=== PATIENT | female | born 1960 | race Caucasian/White ===

== ENCOUNTER 2020-04-03 08:40 | Inpatient (IN) | payer MEDICAID, OTHER ==
[~2020-04-03] VITALS: Ht 162.6 cm; Wt 52.3 kg
[2020-04-03] MEDS ORDERED: SODIUM CHLORIDE 0.9% 1,000 ML IV ONE (09:14)
[2020-04-03] MEDS ORDERED: SODIUM CHLORIDE 0.9% 1,000 ML IVB ONE (09:14)
[2020-04-03] MEDS ORDERED: METOCLOPRAMIDE HCL 5MG/ml INJ 2ml VIAL IV ONE (09:15)
[2020-04-03] MEDS ORDERED: MORPHINE SULFATE 4 MG/ML SYR/VIAL IV ONE (09:15)
[2020-04-03] MEDS ORDERED: IOHEXOL 300 MG/ML 100ML BOTTLE IJ ONE (09:31)
[2020-04-03 11:26] LABS: Urine Bacteria NONE SEEN /hpf (None Seen); Urine Blood 1+ /uL (Negative); Urine Mucus FEW (None Seen); Urine Specific Gravity 1.026 (1.001-1.035); Urine WBC 3 /hpf (0 - 5)
[2020-04-03 11:32] LABS: Basophils # (auto) 0 10 ^3/uL (0-0.2); Basophils % (auto) 0.4 % (0.0-2.0); Eosinophils # (auto) 0.1 10 ^3/uL (0-0.8); Eosinophils % (auto) 0.7 % (0.0-7.0); Hemoglobin 12.6 g/dL (12.2-16.2); Lymphocytes # (auto) 1.7 10 ^3/uL (0.4-5.4); Lymphocytes % (auto) 14.1 % (10.0-50.0); Mean Corpuscular Hemoglobin 29.7 pg (28.0-32.0); Mean Corpuscular Hgb Conc. 33.1 g/dL (32.0-36.0); Mean Corpuscular Volume 89.8 fL (80.0-100.0); Monocytes # (auto) 0.9 10 ^3/uL (0-1.3); Monocytes % (auto) 7.7 % (0.0-12.0); Neutrophils # (auto) 9.1 10 ^3/uL (1.6-8.6); Neutrophils % (auto) 77.1 % (37.0-80.0); Nucleated Red Blood Cells % 0.1 %; Platelet Count (auto) 262 10^3/uL (140-450); Red Blood Cells 4.23 10^6/uL (4.0-5.20); Red Cell Distribution Width 13.2 % (11.8-14.3); White Blood Cell 11.8 10^3/uL (4.4-10.8)
[2020-04-03 11:45] LABS: Magnesium 2.3 mg/dL (1.6-2.6); Potassium 3.4 mmol/L (3.5-5.1)
[2020-04-03 11:52] LABS: Albumin 3.2 g/dL (3.4-5.0); BUN/Creatinine Ratio 19.7; Bilirubin, Total 0.5 mg/dL (0.2-1.0); Calcium 8.5 mg/dL (8.5-10.1); Total Protein 7.1 g/dL (6.4-8.2)
[2020-04-03] MEDS ORDERED: cefTRIAXone 1GM/50ML D5W 50 ML IV ONE (13:15)
[2020-04-03] MEDS ORDERED: metroNIDAZOLE 500MG/100ML 100 ML IV ONE (13:15)
[2020-04-03] MEDS ORDERED: HYDROcodone-ACET 5/325MG TAB PO PRN (13:45)
[2020-04-03] MEDS ORDERED: DOCUSATE SOD 100 MG CAP PO PRN (13:45)
[2020-04-03] MEDS ORDERED: MORPHINE SULF INJ 2 MG/ML SYRINGE 1ML IV PRN (13:45)
[2020-04-03] MEDS ORDERED: NITROGLYCERIN 0.4 MG SL TAB SL PRN (13:45)
[2020-04-03] MEDS ORDERED: ACETAMINOPHEN 325 MG TAB PO PRN (13:45)
[2020-04-03] MEDS ORDERED: ceFAZolin 1GM/50ML 50 ML IV ONE (13:45)
[2020-04-03] MEDS ORDERED: CLINDAMYCIN 600MG IV 50 ML IV ONE (13:45)
[2020-04-03] MEDS ORDERED: LORazepam 0.5 MG TAB PO PRN (13:45)
[2020-04-03] MEDS ORDERED: LACTATED RINGER'S 1,000 ML IV ONE (13:45)
[2020-04-03] MEDS ORDERED: POTASSIUM CHL 20MEQ/100ML 100 ML IV ONE (13:45)
[2020-04-03] MEDS ORDERED: ALUM & MAG HYDROX-SIMETH LIQ(MAALOX) 30 ML PO PRN (13:45)
[2020-04-03] MEDS ORDERED: CLINDAMYCIN 600MG IV 50 ML IV SCH (14:00)
[2020-04-03] MEDS ORDERED: ceFAZolin 1GM/50ML 50 ML IV SCH (14:00)
[2020-04-03] MEDS ORDERED: PANTOPRAZOLE 40 MG/10 ML VIAL INJ IV ONE (14:15)
[2020-04-03] MEDS ORDERED: cloNIDine HCL 0.1 MG TAB PO PRN (15:00)
[2020-04-03] MEDS ORDERED: ASCO500T11 PO (15:11)
[2020-04-03] MEDS ORDERED: CHOL20007 PO (15:11)
[2020-04-03] MEDS ORDERED: ATOR10TA52 PO (15:11)
[2020-04-03] MEDS ORDERED: OMEP-263 PO (15:11)
[2020-04-03 15:14] LABS: Cholesterol 187 mg/dL (< 200); HDL Cholesterol 42 mg/dL (40-59); LDL Cholesterol 132 mg/dL (< 100); Triglycerides 103 mg/dL (< 150)
[2020-04-03] MEDS ORDERED: BENZOCAINE (DENTAL) 20 % SPRAY 60ML MT ONE ×2 (15:32→15:45)
[2020-04-03] MEDS: MORPHINE SULF INJ 2 MG/ML SYRINGE 1ML IV PRN ×2 (15:58→21:02)
[2020-04-03] MEDS: ONDANSETRON HCL 4 MG/2 ML VIAL IV PRN ×2 (15:58→21:03)
[2020-04-03] MEDS: SOD CHL 0.9%/ KCL 40MEQ 1,000 ML IV SCH ×2 (18:15→22:33)
[2020-04-03] MEDS: cefTRIAXone 1GM/50ML D5W 50 ML IV SCH (21:02)
[2020-04-03] MEDS: ATORVASTATIN 20 MG TAB PO SCH (22:00)
[2020-04-03] MEDS: metroNIDAZOLE 500MG/100ML 100 ML IV SCH (22:43)
--- NOTE | 2020-04-03 23:00 | NUR ---
received pt from the ER.NGT in [facility].
[2020-04-03 23:30] VITALS: BP 143/94
[2020-04-04] MEDS: MORPHINE SULF INJ 2 MG/ML SYRINGE 1ML IV PRN ×3 (02:04→20:43)
[2020-04-04] MEDS: metroNIDAZOLE 500MG/100ML 100 ML IV SCH ×3 (06:05→21:45)
[2020-04-04] MEDS: SOD CHL 0.9%/ KCL 40MEQ 1,000 ML IV SCH ×2 (06:09→14:44)
[2020-04-04 06:21] VITALS: BP 141/91
--- NOTE | 2020-04-04 07:30 | NUR ---
Opening Shift Note Assumed patient care from NOC RN. Patient currently resting in bed with eyes closed. No signs of distress at this time, respirations even and unlabored. NGT on low intermittent suction, drainage noted. Safety precautions in place, call light within reach. Will continue to monitor.
[2020-04-04 08:46] LABS: Basophils # (auto) 0.1 10 ^3/uL (0-0.2); Basophils % (auto) 0.4 % (0.0-2.0); Eosinophils # (auto) 0.1 10 ^3/uL (0-0.8); Eosinophils % (auto) 0.5 % (0.0-7.0); Hematocrit 37.6 % (36.0-46.0); Hemoglobin 12.5 g/dL (12.2-16.2); Lymphocytes # (auto) 1.1 10 ^3/uL (0.4-5.4); Lymphocytes % (auto) 8.6 % (10.0-50.0); Mean Corpuscular Hgb Conc. 33.3 g/dL (32.0-36.0); Mean Corpuscular Volume 90.1 fL (80.0-100.0); Monocytes # (auto) 0.9 10 ^3/uL (0-1.3); Monocytes % (auto) 6.9 % (0.0-12.0); Neutrophils # (auto) 11.1 10 ^3/uL (1.6-8.6); Neutrophils % (auto) 83.6 % (37.0-80.0); Nucleated Red Blood Cells % 0.1 %; Platelet Count (auto) 275 10^3/uL (140-450); Red Blood Cells 4.18 10^6/uL (4.0-5.20); Red Cell Distribution Width 13.3 % (11.8-14.3); White Blood Cell 13.3 10^3/uL (4.4-10.8)
[2020-04-04 09:00] VITALS: BP 151/81
[2020-04-04 09:05] LABS: INR 0.97 (0.9-1.15); Partial Thromboplastin Time 24.2 sec (23.0-31.2)
[2020-04-04 09:08] LABS: Albumin 2.9 g/dL (3.4-5.0); BUN/Creatinine Ratio 10.5; Calcium 8.5 mg/dL (8.5-10.1); Potassium 3.6 mmol/L (3.5-5.1)
[2020-04-04 09:10] LABS: Bilirubin, Total 0.5 mg/dL (0.2-1.0); Phosphorus 2.6 mg/dL (2.5-4.90)
[2020-04-04] MEDS: cefTRIAXone 1GM/50ML D5W 50 ML IV SCH ×2 (10:16→20:43)
[2020-04-04] MEDS: PANTOPRAZOLE 40 MG/10 ML VIAL INJ IV SCH (10:17)
--- NOTE | 2020-04-04 10:23 | NUR ---
at [facility] Dr. Sanon at [facility], discussed plan of care, no new orders at this time. Addendum: 04/04/20 at 1328 by RADHA LUCAS RN RN New orders received: start TPN per pharmacy once midline is placed.
[2020-04-04] MEDS: ONDANSETRON HCL 4 MG/2 ML VIAL IV PRN ×2 (10:34→20:43)
[2020-04-04 13:00] VITALS: BP 138/89
--- NOTE | 2020-04-04 13:27 | NUR ---
Called for Midline Called radiology for midline RN per Dr. Sanon request, no answer at this time, will attempt later.
--- NOTE | 2020-04-04 15:04 | NUR ---
at [facility] Warner at station discussing plan of care with patient. Addendum: 04/04/20 at 1854 by RADHA LUCAS RN RN and
--- NOTE | 2020-04-04 16:00 | NUR ---
PICC Line RN Received call from PICC line RN. Patient to have PICC line placed tomorrow.
[2020-04-04 16:51] VITALS: BP 135/77
--- NOTE | 2020-04-04 19:30 | NUR ---
Opening Shift Note Assumed care of patient, awake and alert. A&Ox4. Patient sitting up in bed. No S/S of distress/SOB or pain. NGT tube to low intermittent suction. Safety measures maintained by keeping the bed locked in lowest position, 2 side rails up, personal items and call light within reach. Instructed on POC and to call for assist PRN, will continue to monitor for changes Q1hr and PRN.
[2020-04-04] MEDS: ATORVASTATIN 20 MG TAB PO SCH (21:45)
[2020-04-04 22:16] VITALS: BP 117/76
[2020-04-05] MEDS: SOD CHL 0.9%/ KCL 40MEQ 1,000 ML IV SCH ×3 (00:09→16:13)
[2020-04-05] MEDS: metroNIDAZOLE 500MG/100ML 100 ML IV SCH (05:37)
[2020-04-05 05:52] VITALS: BP 147/88
--- NOTE | 2020-04-05 07:30 | NUR ---
Opening Shift Note Assumed care of patient, resting comfortably. No S/S of distress/SOB or pain on room air, NGT in place. Instructed on POC and to call for assist PRN, will continue to monitor for changes Q1hr and PRN. Bed in low and locked position, rails up x2, no-slip socks on.
[2020-04-05 09:00] VITALS: BP 137/85
[2020-04-05] MEDS: PANTOPRAZOLE 40 MG/10 ML VIAL INJ IV SCH (10:14)
[2020-04-05] MEDS: cefTRIAXone 1GM/50ML D5W 50 ML IV SCH (10:14)
--- NOTE | 2020-04-05 11:05 | NUR ---
DR CHEEK AT BEDSIDE AWAITING SURGICAL CONSULT AND PICC LINE INSERTION TODAY.
--- NOTE | 2020-04-05 11:09 | NUR ---
DR OVERTON AT BEDSIDE-CLAMPED NGT CONTINUE TO REASSESS PATIENT FOR NAUSEA AND ABILITY TO TOLERATE CLAAPPED NG. Addendum: 04/05/20 at 1110 by IQRA GUERRA RN RN CLAMPED NG TUBE
[2020-04-05 13:00] VITALS: BP 149/81
--- NOTE | 2020-04-05 14:08 | NUR ---
Assessment Patient is a 59-year-old female who is alert and oriented. Prior to admission patient lived home with her significant other Adebayo and functioned independently. Patient informed me she can care for her own ADLs. Patient informed me she does not have any medical equipment now. Per patient she will return home to her prior living arrangement post discharge and Adebayo will transport her home. Advised patient there is a social service consult for home health TPN and IV abx 1gm daily for 3 weeks. Informed patient clinical information will be faxed to [facility] and JALYN Santos will be working on the IV abx. Per patient Adebayo can assist with the IV abx when the home health agency is unable too. Patient informed me she does not have a primary doctor and would like to be assign to one. Informed patient I will refer her to Keren Reina who can assist with assign a primary doctor. Informed patient she has a right to participate in all discharge planning. Patient verbalized understanding and agreed to discharge plan home. Faxed clinical information to [facility] and [facility]. Toni Rod with [facility] [phone] patient has been accepted and they will see patient within 24hrs upon d/c day. Addendum: 04/05/20 at 1411 by LINCOLN ROJAS Amended: Links added.
--- NOTE | 2020-04-05 14:12 | NUR ---
Faxed Home IVAB & TPN order to [facility], called [phone] and spoke with Karina who confirmed packet has been received
--- NOTE | 2020-04-05 15:04 | NUR ---
PICC line placement Patient educated on need for PICC line placement. All risks and benefits explained and all questions and concerns addressed prior to procedure. Noted past medical history and allergies with no contraindications. INR and Plt counts within acceptable range. 5 fr PICC line inserted via right brachial vein using [employer] US and Tip Location System. Sterile technique with maximum barrier precautions utilized. Blood return obtained from each of the 2 lumens and each flushed easily with NS using proper technique. PICC secured with Stat-lock; biodisc and occlusive dressing applied. Stat portable chest x-ray obtained for PICC tip placement. *Baseline Arm Circumference 26 cm. Internal length 35 cm. External length 1 cm. Total PICC length is 36 cm. PICC lot #[id number]
--- NOTE | 2020-04-05 15:05 | NUR ---
Obtain authorization from [facility] for [facility] [id number].
[2020-04-05] MEDS ORDERED: LIDOCAINE 1% (LOCAL ANESTH.) PF 5ml SDV ID ONE (15:15)
[2020-04-05] MEDS: BENZOCAINE (DENTAL) 20 % SPRAY 60ML MT PRN (15:16)
--- NOTE | 2020-04-05 15:17 | NUR ---
Rec'd call back from Lily at [facility], advising they will need the following before they can start services on patient: MAR - once ertapenem has been given PICC/Radiology Insertion report TPN formula once pt has been started on and is stable Labs from the date of d/c Order to be modified to say: Pharmacy to Manage Flush Orders (form) Orders for weekly Labs: - CBC - TRANSCRIBING MACHINE MECHANIC - Mag - Phos - Triglycerides Order for [employer] Writer assessment
--- NOTE | 2020-04-05 15:41 | NUR ---
Nutrition Assessment Notes Please refer to link for full assessment notes. Est Energy needs: 4131-2139 kcals (25-30 kcal/kgBW) Est Protein needs: 42-53 gms/day (0.8-1.0 gm/kgBW) Will continue to monitor and reassess prn. Addendum: 04/05/20 at [address] Amended: Links added.
--- NOTE | 2020-04-05 15:47 | NUR ---
Okay to use PICC line Xray completed and reviewed. Okay to use PICC line. Cherelle MALDONADO notified.
[2020-04-05 17:03] VITALS: BP 155/90
[2020-04-05] MEDS ORDERED: TPN PER PHARMACY 0 ML IV SCH (17:15)
--- NOTE | 2020-04-05 19:20 | NUR ---
Opening note pt resting in semi fowlers with HOB at 30 degrees. respirations even and nonlabored on room air. pt denies pain or discomfort at this time, will continue to monitor. pt has x2 lumen PICC line placed at the right upper arm. POC discussed, pt verbalized understanding. pt is ambulatory to the bedside commode. bed rails up x2. pt has NG tube placement at the left nare at 65 cms, which is currently clamped. bed in low locked position, call light within reach.
[2020-04-05 19:36] LABS: Albumin 2.9 g/dL (3.4-5.0); Calcium 8.9 mg/dL (8.5-10.1); Potassium 4.7 mmol/L (3.5-5.1)
[2020-04-05 19:41] LABS: BUN/Creatinine Ratio 12.1; Bilirubin, Total 0.5 mg/dL (0.2-1.0); Total Protein 7.1 g/dL (6.4-8.2)
[2020-04-05] MEDS ORDERED: CLINIMIX PER PHARMACY IV NR (20:00)
[2020-04-05] MEDS ORDERED: SOD CHL 0.9%/ KCL 40MEQ 1,000 ML IV SCH (21:00)
--- NOTE | 2020-04-05 21:25 | NUR ---
IV discontinued left forearm 20g infiltrated and discontinued. entire catheter intact upon removal. pt tolerated removal well.
[2020-04-05] MEDS ORDERED: D5W 5% IV ONE (21:30)
[2020-04-05] MEDS ORDERED: [UNRECOGNIZED DRUG - OTHER] IV ONE (21:30)
[2020-04-05 22:00] VITALS: BP 151/84
[2020-04-05] MEDS: ATORVASTATIN 20 MG TAB PO SCH (22:52)
[2020-04-05] MEDS: SODIUM CHLOR 0.9% PF (SALINE LOCK) 10ML VIAL/SYR IV SCH (22:52)
[2020-04-05] MEDS: ACCU-CHEK COMFORT CURVE STRIP VI SCH (23:23)
[2020-04-05] MEDS: InsuLIN REG 1unit/0.01ml Soln (100units/ml) SC SCH (23:23)
[2020-04-06] MEDS ORDERED: DEXTROSE (50%) 50ML SYRG IV SCH
[2020-04-06] MEDS: BENZOCAINE (DENTAL) 20 % SPRAY 60ML MT PRN (03:23)
[2020-04-06 05:00] VITALS: BP 134/90
[2020-04-06] MEDS: ACCU-CHEK COMFORT CURVE STRIP VI SCH ×3 (05:59→17:35)
[2020-04-06] MEDS: InsuLIN REG 1unit/0.01ml Soln (100units/ml) SC SCH ×3 (05:59→17:35)
--- NOTE | 2020-04-06 06:10 | NUR ---
hospitalist spoke with Dr. Madison regarding resolved potassium deficiency. potassium level is no 4.7 new orders to discontinue NS 0.9 40 kcl meq. orders read back and verified. will carry out
[2020-04-06 06:32] LABS: Basophils # (auto) 0 10 ^3/uL (0-0.2); Basophils % (auto) 0.2 % (0.0-2.0); Eosinophils # (auto) 0.1 10 ^3/uL (0-0.8); Eosinophils % (auto) 1.4 % (0.0-7.0); Hematocrit 39.2 % (36.0-46.0); Hemoglobin 12.9 g/dL (12.2-16.2); Lymphocytes # (auto) 1.7 10 ^3/uL (0.4-5.4); Lymphocytes % (auto) 17.3 % (10.0-50.0); Mean Corpuscular Hemoglobin 29.3 pg (28.0-32.0); Mean Corpuscular Volume 88.8 fL (80.0-100.0); Monocytes # (auto) 0.9 10 ^3/uL (0-1.3); Monocytes % (auto) 9.4 % (0.0-12.0); Neutrophils # (auto) 6.9 10 ^3/uL (1.6-8.6); Neutrophils % (auto) 71.7 % (37.0-80.0); Nucleated Red Blood Cells % 0.1 %; Platelet Count (auto) 333 10^3/uL (140-450); Red Blood Cells 4.41 10^6/uL (4.0-5.20); Red Cell Distribution Width 13.2 % (11.8-14.3); White Blood Cell 9.6 10^3/uL (4.4-10.8)
[2020-04-06 06:49] LABS: Potassium 3.5 mmol/L (3.5-5.1)
[2020-04-06 06:57] LABS: Albumin 2.9 g/dL (3.4-5.0); BUN/Creatinine Ratio 17.3; Bilirubin, Total 0.4 mg/dL (0.2-1.0); Calcium 8.9 mg/dL (8.5-10.1); Pre Albumin 8.6 mg/dL (20.0-40.0); Total Protein 7.4 g/dL (6.4-8.2)
--- NOTE | 2020-04-06 07:19 | NUR ---
closing note pt resting in semi fowlers position with HOB at 30 degrees. pt does not report nausea or vomiting. no c/o pain or discomfort. endorsed care to day shift RN.
--- NOTE | 2020-04-06 07:40 | NUR ---
Opening Note Assumed pt care from NOC RN. Pt is a/ox4 with no s/s of distress or SOB. Pt is currently sitting upright in bed with no complaints at this time. NG tube noted to pt's Raulito nare, clamped. TNP is currently running at 42mL/hr. Discussed POC with pt; pending surgical consult and current NPO status. Safety measures maintained with call light within reach, bed in lowest position and side rails up. Will continue to monitor for changes.
[2020-04-06] MEDS: SODIUM CHLOR 0.9% PF (SALINE LOCK) 10ML VIAL/SYR IV SCH (08:34)
[2020-04-06] MEDS: PANTOPRAZOLE 40 MG/10 ML VIAL INJ IV SCH (08:34)
[2020-04-06] MEDS: ERTAPENEM SOD INJ 1 GM in SODIUM CHL 0.9% 50 ML IV SCH (08:35)
[2020-04-06 09:00] VITALS: BP 155/96
--- NOTE | 2020-04-06 11:16 | NUR ---
NG Tube D/C'ed NF tube to pt's L nare removed per MD's orders. Pt tolerated removal well. Pt provided ice chips. Will continue to monitor for changes and needs.
--- NOTE | 2020-04-06 11:30 | NUR ---
Dr Sanon at Bedside MD to see pt. requests that pt be advanced to clear liquid diet. Will continue to monitor.
[2020-04-06 17:00] VITALS: BP 144/82
--- NOTE | 2020-04-06 17:40 | NUR ---
Dr Warner at Bedside MD to see pt. Discussed POC. Plans to d/c pt home tomorrow possibly with antibiotics. No new orders at this time. Will continue to monitor.
[2020-04-06] MEDS ORDERED: TPN PER PHARMACY IV NR ×10 (20:00)
[2020-04-06 22:00] VITALS: BP 144/99
[2020-04-07] MEDS: ACCU-CHEK COMFORT CURVE STRIP VI SCH ×4 (00:06→16:41)
[2020-04-07] MEDS: ATORVASTATIN 20 MG TAB PO SCH (00:06)
[2020-04-07] MEDS: SODIUM CHLOR 0.9% PF (SALINE LOCK) 10ML VIAL/SYR IV SCH ×2 (00:06→09:03)
[2020-04-07] MEDS: InsuLIN REG 1unit/0.01ml Soln (100units/ml) SC SCH ×4 (00:20→16:41)
[2020-04-07 05:43] VITALS: BP 140/87
--- NOTE | 2020-04-07 07:50 | NUR ---
Opening Note Assumed pt care form NOC RN. Pt is a/ox4 with no s/s of distress or SOB. Pt is currently sitting upright in bed with no complaints at this time. TPN is currently running at 58mL/hr. Pt states that she is tolerating the clear liquid diet well. Discussed POC with pt; pt verbalized understanding. Safety measures maintained with call light within reach, bed in lowest position and side rails up. Will continue to monitor for changes.
--- NOTE | 2020-04-07 08:32 | NUR ---
Paged Social Serviced Paged director of convention services child welfare social worker inquiring about the [facility] infusion set up. Per Dr Warner, plans to d/c pt home today. Awaiting call back.
[2020-04-07 09:00] VITALS: BP 118/85
[2020-04-07] MEDS: ERTAPENEM SOD INJ 1 GM in SODIUM CHL 0.9% 50 ML IV SCH (09:03)
[2020-04-07] MEDS: PANTOPRAZOLE 40 MG/10 ML VIAL INJ IV SCH (09:03)
--- NOTE | 2020-04-07 09:40 | NUR ---
[facility] Spoke with [facility] at [phone]. Spoke with staff member at [employer] [facility]. Provided staff member with pt's information and call back information. Stated that a staff member would get back to me. Awaiting call back for d/c planning. Addendum: 04/07/20 at 1039 by GEOFF SANDERS RN RN Spoke with Brand Representative for [facility]. requested additional information regarding patient. Requested I fax pt's most recent labs as well as pt's MD post d/c. Fax number [phone] Addendum: 04/07/20 at 1048 by GEOFF SANDERS RN RN Faxed information (labs and MD contact information). Will call company's collections manager pharmacist per CM request. Addendum: 04/07/20 at 1144 by GEOFF SANDERS RN RN Spoke with Yasmeen pharmacist from [facility]. She requested us to fax over the TPN order, flush orders as well as PICC confirmation. Faxed over all requested documents. Will continue to monitor. Addendum: 04/07/20 at 1441 by GEOFF SANDERS RN RN Called [facility] requesting an update on status of case. Left contact information. Awaiting call back. Addendum: 04/07/20 at 1556 by GEOFF SANDERS RN RN Per Yasmeen with [facility], pt has been accepted and delivery will happen tonight to start treatment. Will continue with discharge.
[2020-04-07 11:47] LABS: Basophils # (auto) 0 10 ^3/uL (0-0.2); Basophils % (auto) 0.4 % (0.0-2.0); Eosinophils # (auto) 0.2 10 ^3/uL (0-0.8); Eosinophils % (auto) 3.3 % (0.0-7.0); Hematocrit 40.8 % (36.0-46.0); Hemoglobin 13.3 g/dL (12.2-16.2); Lymphocytes # (auto) 1.9 10 ^3/uL (0.4-5.4); Lymphocytes % (auto) 25.3 % (10.0-50.0); Mean Corpuscular Hemoglobin 29.2 pg (28.0-32.0); Mean Corpuscular Hgb Conc. 32.6 g/dL (32.0-36.0); Mean Corpuscular Volume 89.5 fL (80.0-100.0); Monocytes # (auto) 0.8 10 ^3/uL (0-1.3); Monocytes % (auto) 11.2 % (0.0-12.0); Neutrophils # (auto) 4.5 10 ^3/uL (1.6-8.6); Neutrophils % (auto) 59.8 % (37.0-80.0); Platelet Count (auto) 353 10^3/uL (140-450); Red Blood Cells 4.56 10^6/uL (4.0-5.20); Red Cell Distribution Width 13.2 % (11.8-14.3); White Blood Cell 7.5 10^3/uL (4.4-10.8)
[2020-04-07 12:06] LABS: Magnesium 2.2 mg/dL (1.6-2.6); Potassium 3.5 mmol/L (3.5-5.1)
[2020-04-07 12:09] LABS: BUN/Creatinine Ratio 15.3; Bilirubin, Total 0.2 mg/dL (0.2-1.0); Total Protein 7.2 g/dL (6.4-8.2)
--- NOTE | 2020-04-07 13:57 | NUR ---
Nutrition Followup Note Wt 52.3kg Pt reports appetite is okay. Pt diet was advanced to clear liquid, pt reports eating all of clear liq diet breakfast, pt diet advanced to full liquid. Pt is on TPN at 58 ml/hr providing 1150 kcal and 50g of protein. Pt reports she is to be DC'd with home TPN. Est Energy needs: 0381-6844 kcals (25-30 kcal/kgBW) Est Protein needs: 42-53 gms/day (0.8-1.0 gm/kgBW) Will continue to monitor and reassess prn. Labs: GLUC 160H, Creat 0.52L, Alb 2.9L BM: pt with 1 BM 04/07 per RN note Skin: BS 22 low risk full details in healthcare administrator note. PES: 1) Increased nutrient needs r/t current medical condition aeb pt is NPO, will be with TPN at home after D/C Comments: Will continue to monitor PO status, skin status, pertinent labs and weight trends. Will f/u in 3-5 days. 1) Continue to carefully monitor pt NPO status 2) Gradually advance pt to oral diet when medically feasible and as tolerated 3) Continue current plan of care Expected Outcomes/Goals: Pt to advance to an oral diet
[2020-04-07 15:56] VITALS: BP 117/82
--- NOTE | 2020-04-07 16:26 | NUR ---
D/C Tele Tele 75 d/c'ed and sent back to ICU. Staff made aware.
--- NOTE | 2020-04-07 17:29 | NUR ---
PATIENT DISCHARGED OFF UNIT. PATIENT AWARE OF FOLLOW UP APPOINTMENTS AND THE START OF HOME HEALTH [facility] INFUSION. PATIENT TOOK ALL BELONGINGS, PICC LINE, ALL QUESTIONS ANSWERED. Signed: 04/07/20 at 1730 by TAMAR GARIBAY <Co-Signature Required> Co-Signed: 04/07/20 at 1730 by GEOFF SANDERS RN RN
--- NOTE | 2020-04-09 08:10 | NUR ---
[facility] ARCHITECT WEEKEND No Page no call regarding social service consult for information on possibility of disability.
== END 2020-04-07 17:20 | disposition home health service (06) | DRG 244 ==
LOC: ER 08:40 → OVERFLOW 08:41 → TELE-WESTW 22:56
PROVIDERS: ADMIT Hospitalist; ATTEND Hospitalist
PROC: 0D9670Z Drainage of Stomach with Drainage Device, Via Natural or Artificial Opening (ICD-10-PCS; 2020-04-03)
PROC: 02HV33Z Insertion of Infusion Device into Superior Vena Cava, Percutaneous Approach (ICD-10-PCS; principal; 2020-04-05)
PROC: 3E0436Z Introduction of Nutritional Substance into Central Vein, Percutaneous Approach (ICD-10-PCS; 2020-04-06)
DX: K57.20 Diverticulitis of large intestine with perforation and abscess without bleeding (principal); K76.0 Fatty (change of) liver, not elsewhere classified; E87.6 Hypokalemia; K58.9 Irritable bowel syndrome, unspecified; K29.70 Gastritis, unspecified, without bleeding; K21.9 Gastro-esophageal reflux disease without esophagitis; F12.90 Cannabis use, unspecified, uncomplicated; E78.5 Hyperlipidemia, unspecified; E44.0 Moderate protein-calorie malnutrition; Z88.1 Allergy status to other antibiotic agents; Z68.1 Body mass index [BMI] 19.9 or less, adult; Z20.828 Contact with and (suspected) exposure to other viral communicable diseases
CPT/HCPCS: 36415; 36569; 71045; 71046; 74177; 80053; 80061; 81001; 82040; 82962; 83036; 83690; 83735; 84100; 84443; 84478; 84484; 85025; 85610; 85730; 87040; 87086; 93005; 93306; 96361; 96365; 96368; 96375; C9113; G0378; J0690; J0696; J1335; J2405; J3480; J3490; J7060; J7131

== ENCOUNTER 2021-01-20 15:32 | Emergency (ER) | payer MEDICAID ==
[~2021-01-20] VITALS: Ht 162.6 cm; Wt 54.4 kg
[~2021-01-20 15:32] MED LIST: ASCO500T11 PO; ATOR10TA52 PO; CHOL20007 PO; OMEP-263 PO
[2021-01-20] MEDS ORDERED: SODIUM CHLORIDE 0.9% 1,000 ML IV ONE (15:45)
[2021-01-20] MEDS ORDERED: PANTOPRAZOLE 40 MG/10 ML VIAL INJ IV ONE (15:45)
[2021-01-20] MEDS ORDERED: MORPHINE SULFATE 4 MG/ML SYR/VIAL IV ONE (15:45)
[2021-01-20] MEDS ORDERED: PROCHLORPERAZINE EDISYLATE 5 MG/ML 2ML VIAL IV ONE (15:45)
[2021-01-20 16:25] VITALS: BP 146/102
[2021-01-20 16:37] LABS: Basophils # (auto) 0.1 10 ^3/uL (0-0.2); Basophils % (auto) 0.9 % (0.0-2.0); Eosinophils # (auto) 0.1 10 ^3/uL (0-0.8); Eosinophils % (auto) 0.6 % (0.0-7.0); Hematocrit 50.1 % (36.0-46.0); Hemoglobin 17.1 g/dL (12.2-16.2); Lymphocytes # (auto) 3.8 10 ^3/uL (0.4-5.4); Lymphocytes % (auto) 32.1 % (10.0-50.0); Mean Corpuscular Hemoglobin 30.3 pg (28.0-32.0); Mean Corpuscular Hgb Conc. 34.2 g/dL (32.0-36.0); Mean Corpuscular Volume 88.5 fL (80.0-100.0); Monocytes # (auto) 0.8 10 ^3/uL (0-1.3); Monocytes % (auto) 6.6 % (0.0-12.0); Neutrophils # (auto) 7.1 10 ^3/uL (1.6-8.6); Neutrophils % (auto) 59.8 % (37.0-80.0); Nucleated Red Blood Cells % 0.1 %; Platelet Count (auto) 364 10^3/uL (140-450); Red Blood Cells 5.66 10^6/uL (4.0-5.20); Red Cell Distribution Width 13.8 % (11.8-14.3)
[2021-01-20 16:58] LABS: Albumin 4.4 g/dL (3.4-5.0); BUN/Creatinine Ratio 20.9; Calcium 9.8 mg/dL (8.5-10.1); Potassium 3.4 mmol/L (3.5-5.1)
[2021-01-20 17:01] LABS: Bilirubin, Total 0.7 mg/dL (0.2-1.0); Total Protein 8.7 g/dL (6.4-8.2)
== END 2021-01-20 17:41 | disposition home or self-care (01) ==
LOC: ER 15:32
DX: R11.2 Nausea with vomiting, unspecified (principal); R05 Cough; F12.10 Cannabis abuse, uncomplicated; Z88.1 Allergy status to other antibiotic agents; Z79.899 Other long term (current) drug therapy
CPT/HCPCS: 36415; 80053; 83690; 85025; 93005; 96361; 96374; 96375; 99284; C9113; J0780; J2270; J7030

== ENCOUNTER 2022-04-23 06:50 | Inpatient (IN) | payer MEDICAID ==
[~2022-04-23] VITALS: Ht 162.6 cm; Wt 49.6 kg
[2022-04-23 08:09] LABS: Basophils # (auto) 0.1 10 ^3/uL (0-0.2); Basophils % (auto) 1.1 % (0.0-2.0); Eosinophils # (auto) 0.1 10 ^3/uL (0-0.8); Eosinophils % (auto) 1.2 % (0.0-7.0); Hematocrit 41.9 % (36.0-46.0); Hemoglobin 13.6 g/dL (12.2-16.2); Lymphocytes % (auto) 22.6 % (10.0-50.0); Mean Corpuscular Hemoglobin 28.9 pg (28.0-32.0); Mean Corpuscular Hgb Conc. 32.5 g/dL (32.0-36.0); Mean Corpuscular Volume 88.9 fL (80.0-100.0); Monocytes # (auto) 0.5 10 ^3/uL (0-1.3); Monocytes % (auto) 6.3 % (0.0-12.0); Neutrophils # (auto) 5.9 10 ^3/uL (1.6-8.6); Neutrophils % (auto) 68.8 % (37.0-80.0); Red Blood Cells 4.72 10^6/uL (4.0-5.20); Red Cell Distribution Width 13.4 % (11.8-14.3); White Blood Cell 8.6 10^3/uL (4.4-10.8)
[2022-04-23 08:29] LABS: Urine Bacteria NONE SEEN /hpf (None Seen); Urine Blood Negative /uL (Negative); Urine Mucus FEW (None Seen); Urine WBC 1 /hpf (0 - 5)
[2022-04-23 09:17] LABS: Albumin 3.9 g/dL (3.4-5.0); Calcium 9.2 mg/dL (8.5-10.1); Potassium 4.3 mmol/L (3.5-5.1)
[2022-04-23 09:22] LABS: BUN/Creatinine Ratio 20.6; Bilirubin, Total 0.6 mg/dL (0.2-1.0); Total Protein 7.1 g/dL (6.4-8.2)
[2022-04-23] MEDS ORDERED: cefTRIAXone 1GM/50ML D5W 50 ML IV ONE (11:15)
[2022-04-23] MEDS ORDERED: metroNIDAZOLE 500MG/100ML 100 ML IV ONE (11:15)
[2022-04-23] MEDS ORDERED: ONDANSETRON HCL 4 MG/2 ML VIAL IV PRN (13:45)
[2022-04-23] MEDS: metroNIDAZOLE 500MG/100ML 100 ML IV SCH ×2 (14:00→21:49)
[2022-04-23] MEDS: SODIUM CHLORIDE 0.9% 1,000 ML IV SCH (15:57)
[2022-04-23 16:13] LABS: Alcohol, Urine < 3.0 mg/dL (0-10); Amphetamine Screen, Urine NEGATIVE (NEGATIVE); Barbiturate Scree,Urine NEGATIVE (NEGATIVE); Benzodiazephine Screen, Urine NEGATIVE (NEGATIVE); Cannabinoid Screen, Urine POSITIVE (NEGATIVE)
[2022-04-23 16:20] LABS: Cocaine Screen, Urine NEGATIVE (NEGATIVE); Opiate Scree,Urine NEGATIVE (NEGATIVE); Phencyclidine Screen, Urine NEGATIVE (NEGATIVE)
[2022-04-23 19:03] VITALS: BP 132/76
[2022-04-23 23:04] VITALS: BP 140/83
[2022-04-24] MEDS ORDERED: METF-370 PO (00:06)
[2022-04-24] MEDS ORDERED: CLIN150C PO (00:08)
[2022-04-24] MEDS ORDERED: MULT-1018 PO (00:09)
[2022-04-24] MEDS: SODIUM CHLORIDE 0.9% 1,000 ML IV SCH ×3 (00:39→19:52)
[2022-04-24 05:00] VITALS: BP 137/82
[2022-04-24] MEDS: metroNIDAZOLE 500MG/100ML 100 ML IV SCH ×3 (06:00→21:28)
[2022-04-24 06:53] LABS: Basophils # (auto) 0.1 10 ^3/uL (0-0.2); Basophils % (auto) 0.8 % (0.0-2.0); Eosinophils # (auto) 0.1 10 ^3/uL (0-0.8); Hematocrit 39.5 % (36.0-46.0); Hemoglobin 13.8 g/dL (12.2-16.2); Lymphocytes # (auto) 2.5 10 ^3/uL (0.4-5.4); Lymphocytes % (auto) 27.1 % (10.0-50.0); Mean Corpuscular Hemoglobin 30.8 pg (28.0-32.0); Mean Corpuscular Hgb Conc. 34.9 g/dL (32.0-36.0); Mean Corpuscular Volume 88.4 fL (80.0-100.0); Monocytes # (auto) 0.7 10 ^3/uL (0-1.3); Monocytes % (auto) 7.7 % (0.0-12.0); Neutrophils # (auto) 5.8 10 ^3/uL (1.6-8.6); Neutrophils % (auto) 63.4 % (37.0-80.0); Red Blood Cells 4.47 10^6/uL (4.0-5.20); Red Cell Distribution Width 12.9 % (11.8-14.3); White Blood Cell 9.2 10^3/uL (4.4-10.8)
[2022-04-24 06:54] LABS: Potassium 3.8 mmol/L (3.5-5.1)
[2022-04-24 07:00] LABS: Albumin 3.7 g/dL (3.4-5.0); BUN/Creatinine Ratio 13.8; Calcium 9.3 mg/dL (8.5-10.1)
[2022-04-24 07:02] LABS: Bilirubin, Total 0.7 mg/dL (0.2-1.0); Total Protein 7.5 g/dL (6.4-8.2)
[2022-04-24] MEDS: cefTRIAXone 1GM/50ML D5W 50 ML IV SCH (08:25)
[2022-04-24 09:09] VITALS: BP 141/81
[2022-04-24] MEDS ORDERED: LEVO-28 PO (12:30)
[2022-04-24] MEDS ORDERED: METR500T PO (12:30)
[2022-04-24 12:50] VITALS: BP 139/85
[2022-04-24 16:58] VITALS: BP 146/84
[2022-04-24 22:00] VITALS: BP 133/86
[2022-04-25] MEDS: metroNIDAZOLE 500MG/100ML 100 ML IV SCH (05:59)
[2022-04-25] MEDS: SODIUM CHLORIDE 0.9% 1,000 ML IV SCH (05:59)
[2022-04-25] MEDS: cefTRIAXone 1GM/50ML D5W 50 ML IV SCH (08:35)
[2022-04-25 08:41] VITALS: BP 144/93
[2022-04-25 12:35] VITALS: BP 135/91
== END 2022-04-25 15:35 | disposition home or self-care (01) | DRG 244 ==
LOC: ER 06:50 → OVERFLOW 14:00 → CENTRAL 18:20
PROVIDERS: ADMIT Registered Nurse; ATTEND Hospitalist
DX: K57.32 Diverticulitis of large intestine without perforation or abscess without bleeding (principal); K56.7 Ileus, unspecified; K76.89 Other specified diseases of liver; E11.43 Type 2 diabetes mellitus with diabetic autonomic (poly)neuropathy; K31.84 Gastroparesis; E11.9 Type 2 diabetes mellitus without complications; K52.9 Noninfective gastroenteritis and colitis, unspecified; K80.20 Calculus of gallbladder without cholecystitis without obstruction; F12.90 Cannabis use, unspecified, uncomplicated; R11.10 Vomiting, unspecified; Z20.822 Contact with and (suspected) exposure to COVID-19; Z82.5 Family history of asthma and other chronic lower respiratory diseases; Z88.1 Allergy status to other antibiotic agents
CPT/HCPCS: 36415; 74176; 80053; 80307; 81001; 82962; 83605; 85025; 87040; 93005; 96361; 96365; 96368; G0378; J0696; J3490

== ENCOUNTER 2023-03-04 13:18 | Emergency (ER) | payer MEDICAID ==
[~2023-03-04] VITALS: Ht 162.6 cm; Wt 52.0 kg
[~2023-03-04 13:18] MED LIST changes: -ASCO500T11 PO; +LEVO500T91 PO; +METF-370 PO; +METR500T PO; -OMEP-263 PO; +OMEP-448 PO
[2023-03-04 15:06] LABS: Urine Bacteria FEW /hpf (None Seen); Urine Blood Negative /uL (Negative); Urine Mucus FEW (None Seen); Urine Specific Gravity 1.023 (1.001-1.035); Urine WBC 1 /hpf (0 - 5)
[2023-03-04 16:34] LABS: Basophils # (auto) 0 10 ^3/uL (0-0.2); Basophils % (auto) 0.2 % (0.0-2.0); Eosinophils # (auto) 0.3 10 ^3/uL (0-0.8); Eosinophils % (auto) 3.4 % (0.0-7.0); Hemoglobin 12.9 g/dL (12.2-16.2); Lymphocytes # (auto) 2.6 10 ^3/uL (0.4-5.4); Lymphocytes % (auto) 31.4 % (10.0-50.0); Mean Corpuscular Hemoglobin 30.4 pg (28.0-32.0); Mean Corpuscular Volume 89.3 fL (80.0-100.0); Monocytes # (auto) 0.5 10 ^3/uL (0-1.3); Monocytes % (auto) 5.9 % (0.0-12.0); Neutrophils # (auto) 4.9 10 ^3/uL (1.6-8.6); Neutrophils % (auto) 59.1 % (37.0-80.0); Nucleated Red Blood Cells % 0.1 %; Red Blood Cells 4.25 10^6/uL (4.0-5.20); Red Cell Distribution Width 13.5 % (11.8-14.3); White Blood Cell 8.2 10^3/uL (4.4-10.8)
[2023-03-04 16:53] LABS: INR 0.94 (0.9-1.15); Partial Thromboplastin Time 27.9 SEC (24.5-34.5)
[2023-03-04 17:02] LABS: Albumin 3.4 g/dL (3.4-5.0); Calcium 8.5 mg/dL (8.5-10.1); Potassium 3.9 mmol/L (3.5-5.1)
[2023-03-04 17:07] LABS: BUN/Creatinine Ratio 14.6 (10.0-20.0); Bilirubin, Total 0.3 mg/dL (0.2-1.0); Total Protein 6.8 g/dL (6.4-8.2)
[2023-03-04] MEDS ORDERED: PIPERACILLIN-TAZOB 3.375GM 100 ML IV ONE (18:30)
[2023-03-04] MEDS ORDERED: LEVO500T91 PO ×3 (18:58→21:17)
[2023-03-04] MEDS ORDERED: METR375C PO ×3 (18:58→21:17)
[2023-03-04] MEDS ORDERED: ZOFR4T PO ×3 (18:58→21:17)
[2023-03-04] MEDS ORDERED: ACET-6 PO ×3 (18:58→21:17)
[2023-03-04 22:21] VITALS: BP 117/70
== END 2023-03-04 22:22 | disposition home or self-care (01) ==
LOC: ER 13:18
DX: K57.92 Diverticulitis of intestine, part unspecified, without perforation or abscess without bleeding (principal); Z98.51 Tubal ligation status
CPT/HCPCS: 36415; 74176; 80053; 81001; 83605; 84484; 85025; 85610; 85730; 87040; 93005; 96365; 99285; J2543